=== PATIENT | female | born 2000 | race Caucasian/White ===

== ENCOUNTER → 2024-08-12 07:30 | Outpatient (REF) | payer BC, SELFPAY | LOC: MRI 3T 07:30 | PROVIDERS: ATTENDING PHYSICIAN Nurse Practitioner Adult Health; FAMILY PHYSICIAN Family Medicine | DX: G44.89 Other headache syndrome (principal); Z80.8 Family history of malignant neoplasm of other organs or systems | CPT/HCPCS: 70553; A9575 ==

== ENCOUNTER 2025-06-21 06:20 | Day surgery (SDC) | payer SELFPAY, BC ==
[2025-06-21] VITALS (10 sets, daily range): BP systolic 123–151; BP diastolic 58–99; BMI 25.6
[2025-06-21] MEDS: NORMOSOL-R/PLASMALYTE-A 1000 IV (09:20)
[2025-06-21] MEDS: TYLENOL 1000 MG PO (09:40)
[2025-06-21 09:57] LABS: HCG, Urine Qualitative Screen Negative
[2025-06-21] MEDS: ZOFRAN 4 MG IV (15:06)
[2025-06-21] MEDS: DILAUDID 0.25 MG IV (15:15)
== END 2025-06-21 17:05 | disposition home or self-care (01) ==
LOC: COSMETIC 06:20
PROVIDERS: ATTENDING PHYSICIAN Otolaryngology; FAMILY PHYSICIAN Nurse Practitioner Adult Health
DX: Z41.1 Encounter for cosmetic surgery (principal); J34.2 Deviated nasal septum; J34.3 Hypertrophy of nasal turbinates; J34.89 Other specified disorders of nose and nasal sinuses
CPT/HCPCS: 30140; 30520; 81025